=== PATIENT | female | born 1945 | race Two or more races ===

== ENCOUNTER 2023-11-16 19:51 | Inpatient (IN) | payer MEDICARE, OTHER ==
[~2023-11-16] VITALS: Ht 157.5 cm; Wt 50.0 kg
[2023-11-16] MEDS: ALBUTEROL SULF 2.5 MG/0.5ML(0.5%) NEB SOLN HHN ONE (21:06)
[2023-11-16] MEDS: IPRATROPIUM BROM 0.5 MG/2.5ML INH SOL HHN ONE (21:06)
[2023-11-16 21:16] LABS: Basophils # (auto) 0.1 10 ^3/uL (0-0.2); Basophils % (auto) 0.6 % (0.0-2.0); Eosinophils # (auto) 0.3 10 ^3/uL (0-0.8); Eosinophils % (auto) 2.3 % (0.0-7.0); Hematocrit 33.6 % (36.0-46.0); Hemoglobin 10.6 g/dL (12.2-16.2); Lymphocytes # (auto) 0.9 10 ^3/uL (0.4-5.4); Lymphocytes % (auto) 6.9 % (10.0-50.0); Mean Corpuscular Hemoglobin 28.4 pg (28.0-32.0); Mean Corpuscular Hgb Conc. 31.4 g/dL (32.0-36.0); Mean Corpuscular Volume 90.3 fL (80.0-100.0); Monocytes # (auto) 0.7 10 ^3/uL (0-1.3); Monocytes % (auto) 5.1 % (0.0-12.0); Neutrophils # (auto) 11.5 10 ^3/uL (1.6-8.6); Neutrophils % (auto) 85.1 % (37.0-80.0); Nucleated Red Blood Cells % 0.1 %; Red Blood Cells 3.72 10^6/uL (4.0-5.20); Red Cell Distribution Width 14.9 % (11.8-14.3); White Blood Cell 13.5 10^3/uL (4.4-10.8)
[2023-11-16 21:41] LABS: Chloride 104 mmol/L (98-107); Potassium 4.7 mmol/L (3.5-5.1); Sodium 135 mmol/L (136-145)
[2023-11-16 21:42] LABS: Anion Gap 6 (5-15); Calcium 7.5 mg/dL (8.5-10.1); Carbon Dioxide 25 mmol/L (20-30)
[2023-11-16 21:47] LABS: Blood Urea Nitrogen 20 mg/dL (9-23)
[2023-11-16 22:08] LABS: Glucose 426 mg/dL (74-106)
[2023-11-17] VITALS (10 sets, daily range): BP systolic 138–146; BP diastolic 55–75; PULSE 80–96; RESP 12–20; TEMP 97.4–98.3; O2SAT 91–98
[2023-11-17] MEDS ORDERED: NITROGLYCERIN 0.4 MG SL TAB SL PRN (03:15)
[2023-11-17] MEDS ORDERED: DEXTROSE (50%) 50ML SYRG IV PRN (03:15)
[2023-11-17] MEDS ORDERED: ONDANSETRON HCL 4 MG/2 ML VIAL IV PRN (03:15)
[2023-11-17] MEDS ORDERED: ALBUTEROL SULF 2.5 MG/0.5ML(0.5%) NEB SOLN NEB PRN (03:15)
[2023-11-17] MEDS ORDERED: MORPHINE SULFATE INJ 2 MG/ml SYRG IV PRN (03:15)
[2023-11-17] MEDS ORDERED: IPRATROPIUM BROM 0.5 MG/2.5ML INH SOL NEB PRN (03:15)
[2023-11-17] MEDS ORDERED: cefTRIAXone 1GM/50ML D5W 50 ML IV SCH ×2 (04:00→09:00)
[2023-11-17] MEDS: AZITHROMYCIN 500MG/ 250ML 250 ML IV ONE (05:40)
[2023-11-17] MEDS: methylPREDNISolone SOD SUCC 125 MG/2 ML VL IV ONE (05:48)
[2023-11-17] MEDS: InsuLIN REG 1unit/0.01ml Soln (100units/ml) IV ONE (05:53)
[2023-11-17] MEDS: FUROSEMIDE 20 MG/2 ML VIAL IV ONE (05:53)
[2023-11-17] MEDS: ACCU-CHEK COMFORT CURVE STRIP VI SCH (06:00)
[2023-11-17] MEDS: InsuLIN REG 1unit/0.01ml Soln (100units/ml) SC SCH (06:00)
[2023-11-17] MEDS ORDERED: VANCOMYCIN PER PHARMACY 0 MG IV SCH (09:00)
[2023-11-17 09:02] LABS: Basophils # (auto) 0.1 10 ^3/uL (0-0.2); Eosinophils # (auto) 0 10 ^3/uL (0-0.8); Eosinophils % (auto) 0.3 % (0.0-7.0); Hematocrit 32.6 % (36.0-46.0); Hemoglobin 10.6 g/dL (12.2-16.2); Lymphocytes # (auto) 1.3 10 ^3/uL (0.4-5.4); Lymphocytes % (auto) 14.7 % (10.0-50.0); Mean Corpuscular Hemoglobin 28.9 pg (28.0-32.0); Mean Corpuscular Hgb Conc. 32.6 g/dL (32.0-36.0); Mean Corpuscular Volume 88.7 fL (80.0-100.0); Monocytes # (auto) 0.4 10 ^3/uL (0-1.3); Monocytes % (auto) 5.1 % (0.0-12.0); Neutrophils # (auto) 6.8 10 ^3/uL (1.6-8.6); Neutrophils % (auto) 78.9 % (37.0-80.0); Red Blood Cells 3.68 10^6/uL (4.0-5.20); Red Cell Distribution Width 14.7 % (11.8-14.3); White Blood Cell 8.6 10^3/uL (4.4-10.8)
[2023-11-17 09:21] LABS: Alanine Aminotransferase 10 U/L (7-40); Albumin 3.6 g/dL (3.2-4.8); Alkaline Phosphatase 82 U/L (46-116); Anion Gap 9 (5-15); Aspartate Aminotransferase 9 U/L (13-40); BUN/Creatinine Ratio 14.4 (10.0-20.0); Blood Urea Nitrogen 24 mg/dL (9-23); Calcium 7.5 mg/dL (8.5-10.1); Carbon Dioxide 24 mmol/L (20-30); Chloride 103 mmol/L (98-107); Cholesterol 168 mg/dL (< 200); Glucose 370 mg/dL (74-106); HDL Cholesterol 76 mg/dL (40-59); LDL Cholesterol 66 mg/dL (< 100); Potassium 4.4 mmol/L (3.5-5.1); Sodium 136 mmol/L (136-145); Triglycerides 119 mg/dL (< 150)
[2023-11-17 09:22] LABS: Bilirubin, Total 0.2 mg/dL (0.2-1.0); Phosphorus 4.6 mg/dL (2.4-5.1)
[2023-11-17 09:29] LABS: CRP High Sensitivity 9.91 mg/dL (<1.0)
[2023-11-17 09:33] LABS: INR 1.04 (0.9-1.15); Partial Thromboplastin Time 30.6 SEC (24.5-34.5); Prothrombin Time 10.9 sec (9.3-11.8)
[2023-11-17 09:38] LABS: Lactic Acid w/Reflex 2.2 mmol/L (0.4-2.0)
[2023-11-17] MEDS: CEFEPIME 1GM/ 50ML 50 ML IV ONE (09:57)
[2023-11-17] MEDS: CARVEDILOL 12.5 MG TAB PO SCH (10:00)
[2023-11-17] MEDS: VANCOMYCIN 1GM/200ML 200 ML IV ONE ×2 (10:30→16:46)
[2023-11-17] MEDS: GABAPENTIN 300 MG CAP PO SCH (10:33)
[2023-11-17] MEDS: amLODIPine BESYLATE 5 MG TAB PO SCH (10:34)
[2023-11-17] MEDS: ENOXAPARIN SOD 30 MG/0.3 ML SYRINGE SC SCH (10:34)
[2023-11-17 11:00] LABS: Magnesium 1.6 mg/dL (1.6-2.6)
[2023-11-17] MEDS ORDERED: LEVALBUTEROL HCL 1.25 MG/3 ML NEB NEB PRN (12:00)
[2023-11-17] MEDS ORDERED: LEVALBUTEROL HCL 1.25 MG/3 ML NEB NEB SCH (12:00)
[2023-11-17] MEDS ORDERED: ENAL1TAB42 PO (14:50)
[2023-11-17] MEDS ORDERED: AMLO1TAB22 PO (14:50)
[2023-11-17] MEDS ORDERED: CARV-216 PO (14:50)
[2023-11-17] MEDS ORDERED: SULF500T57 PO (14:50)
[2023-11-17] MEDS ORDERED: PRE1T PO (14:50)
[2023-11-17] MEDS ORDERED: GLIP10TA21 PO (14:50)
[2023-11-17] MEDS ORDERED: TRAZ-227 PO (14:50)
[2023-11-17] MEDS ORDERED: METF-370 PO (14:50)
[2023-11-17] MEDS ORDERED: CHOL20007 PO (14:50)
[2023-11-17] MEDS ORDERED: HYDR25TA4 PO (14:50)
[2023-11-17] MEDS ORDERED: ATOR20TA50 PO (14:50)
[2023-11-17] MEDS ORDERED: GABA300T4 PO (14:50)
[2023-11-17] MEDS: ACETAMINOPHEN 325 MG TAB PO PRN (16:45)
[2023-11-17] MEDS ORDERED: SODIUM CHLORIDE 0.9% 1,000 ML IV SCH (19:00)
[2023-11-17] MEDS: ERGOCALCIFEROL 50,000 UNIT(1.25MG) CAP PO SCH (20:12)
[2023-11-17] MEDS: CEFEPIME 1GM/ 50ML 50 ML IV SCH (21:07)
[2023-11-17] MEDS: methylPREDNISolone SOD SUCC 40 MG/ML VL IV SCH (21:07)
[2023-11-17] MEDS: ATORVASTATIN 20 MG TAB PO SCH (21:08)
[2023-11-17] MEDS: SODIUM CHLORIDE 0.9% 250 ML IV ONE (21:09)
[2023-11-17] MEDS ORDERED: AZITHROMYCIN 500MG/ 250ML 250 ML IV SCH (22:00)
[2023-11-18] VITALS (11 sets, daily range): BP systolic 92–145; BP diastolic 56–85; PULSE 70–98; RESP 14–19; TEMP 97.2–98.4; O2SAT 92–99
[2023-11-18 06:32] LABS: Basophils # (auto) 0 10 ^3/uL (0-0.2); Basophils % (auto) 0.5 % (0.0-2.0); Eosinophils # (auto) 0 10 ^3/uL (0-0.8); Eosinophils % (auto) 0.3 % (0.0-7.0); Hematocrit 30.1 % (36.0-46.0); Hemoglobin 9.9 g/dL (12.2-16.2); Lymphocytes # (auto) 0.5 10 ^3/uL (0.4-5.4); Lymphocytes % (auto) 7.1 % (10.0-50.0); Mean Corpuscular Hemoglobin 29.1 pg (28.0-32.0); Mean Corpuscular Hgb Conc. 32.8 g/dL (32.0-36.0); Mean Corpuscular Volume 88.7 fL (80.0-100.0); Monocytes # (auto) 0.1 10 ^3/uL (0-1.3); Monocytes % (auto) 1.3 % (0.0-12.0); Neutrophils % (auto) 90.8 % (37.0-80.0); Red Blood Cells 3.39 10^6/uL (4.0-5.20); Red Cell Distribution Width 14.8 % (11.8-14.3); White Blood Cell 7.7 10^3/uL (4.4-10.8)
[2023-11-18 06:46] LABS: Albumin 3.2 g/dL (3.2-4.8); Alkaline Phosphatase 66 U/L (46-116); Anion Gap 9 (5-15); Aspartate Aminotransferase < 8 U/L (13-40); BUN/Creatinine Ratio 21.9 (10.0-20.0); Calcium 7.1 mg/dL (8.7-10.4); Carbon Dioxide 23 mmol/L (20-30); Chloride 106 mmol/L (98-107); Glucose 253 mg/dL (74-106); Magnesium 1.7 mg/dL (1.6-2.6); Potassium 4.9 mmol/L (3.5-5.1); Sodium 138 mmol/L (136-145)
[2023-11-18 06:47] LABS: Bilirubin, Total 0.2 mg/dL (0.2-1.0); Total Protein 4.9 g/dL (5.7-8.2)
[2023-11-18 06:51] LABS: Alanine Aminotransferase < 9 U/L (7-40); Blood Urea Nitrogen 34 mg/dL (9-23)
[2023-11-18 07:20] LABS: Phosphorus 4.6 mg/dL (2.4-5.1)
[2023-11-18] MEDS: FUROSEMIDE 40 MG TAB PO SCH (08:37)
[2023-11-18 10:13] LABS: Urine Bacteria FEW /hpf (None Seen); Urine Blood Negative /uL (Negative); Urine Clarity Clear (Clear); Urine Color Light-Yellow (Yellow); Urine Protein, UAD 2+ (Negative); Urine Urobilinogen Normal (Negative); Urine WBC 1 /hpf (0 - 5); Urine pH 5.5 (5.0-9.0)
[2023-11-18 10:26] LABS: Amphetamine Screen, Urine Neg (NEGATIVE)
[2023-11-18 10:27] LABS: Barbiturate Scree,Urine Neg (NEGATIVE); Benzodiazephine Screen, Urine Neg (NEGATIVE); Cannabinoid Screen, Urine Neg (NEGATIVE); Cocaine Screen, Urine Neg (NEGATIVE); Opiate Scree,Urine Neg (NEGATIVE); Phencyclidine Screen, Urine Neg (NEGATIVE)
[2023-11-18] MEDS: VANCOMYCIN 500 MG in D5W 5% 100 ML IV ONE (11:00)
[2023-11-18] MEDS: AZITHROMYCIN 250 MG TAB PO ONE (17:19)
[2023-11-18] MEDS: FUROSEMIDE 20 MG/2 ML VIAL IV ONE (17:19)
[2023-11-18] MEDS: sulfaSALAzine 500 MG TAB PO SCH ×2 (18:00→20:30)
[2023-11-18] MEDS: sulfaSALAzine 500 MG TAB PO ONE (22:16)
[2023-11-18] MEDS: CEFEPIME 1GM/ 50ML 50 ML IV SCH (22:17)
[2023-11-18] MEDS: CARVEDILOL 3.125 MG TAB PO SCH (22:17)
[2023-11-19] VITALS (8 sets, daily range): BP systolic 133–149; BP diastolic 61–74; PULSE 66–85; RESP 16–20; TEMP 36.7; O2SAT 95–98
[2023-11-19 06:38] LABS: Basophils # (auto) 0 10 ^3/uL (0-0.2); Basophils % (auto) 0.4 % (0.0-2.0); Eosinophils # (auto) 0 10 ^3/uL (0-0.8); Eosinophils % (auto) 0.1 % (0.0-7.0); Hematocrit 30.8 % (36.0-46.0); Hemoglobin 9.9 g/dL (12.2-16.2); Lymphocytes # (auto) 0.6 10 ^3/uL (0.4-5.4); Lymphocytes % (auto) 9.3 % (10.0-50.0); Mean Corpuscular Hemoglobin 28.9 pg (28.0-32.0); Mean Corpuscular Hgb Conc. 32.3 g/dL (32.0-36.0); Mean Corpuscular Volume 89.3 fL (80.0-100.0); Monocytes # (auto) 0.1 10 ^3/uL (0-1.3); Monocytes % (auto) 1.2 % (0.0-12.0); Neutrophils # (auto) 5.5 10 ^3/uL (1.6-8.6); Red Blood Cells 3.45 10^6/uL (4.0-5.20); Red Cell Distribution Width 14.8 % (11.8-14.3); White Blood Cell 6.2 10^3/uL (4.4-10.8)
[2023-11-19 06:57] LABS: Alanine Aminotransferase 12 U/L (7-40); Albumin 3.4 g/dL (3.2-4.8); Alkaline Phosphatase 75 U/L (46-116); Anion Gap 8 (5-15); Aspartate Aminotransferase 12 U/L (13-40); BUN/Creatinine Ratio 20.1 (10.0-20.0); Bilirubin, Total 0.2 mg/dL (0.2-1.0); Blood Urea Nitrogen 33 mg/dL (9-23); Calcium 7.3 mg/dL (8.5-10.1); Carbon Dioxide 24 mmol/L (20-30); Chloride 106 mmol/L (98-107); Glucose 308 mg/dL (74-106); Phosphorus 4.7 mg/dL (2.4-5.1); Sodium 138 mmol/L (136-145); Total Protein 5.6 g/dL (5.7-8.2)
[2023-11-19 07:12] LABS: Magnesium 1.8 mg/dL (1.6-2.6)
[2023-11-19] MEDS ORDERED: LEVO750T40 PO (14:50)
[2023-11-19] MEDS: FUROSEMIDE 20 MG/2 ML VIAL IV ONE (15:00)
[2023-11-19] MEDS: AZITHROMYCIN 250 MG TAB PO SCH (16:12)
== END 2023-11-19 17:00 | disposition home or self-care (01) | DRG 871 ==
LOC: EDBD 19:51 → ER 19:51 → TELE 11-17 03:14 → TELE-EAST 11-17 12:54
PROVIDERS: ADMIT Internal Medicine; ATTEND Internal Medicine
DX: A41.50 Gram-negative sepsis, unspecified (principal); I50.43 Acute on chronic combined systolic (congestive) and diastolic (congestive) heart failure; J15.69 Pneumonia due to other Gram-negative bacteria; N17.0 Acute kidney failure with tubular necrosis; J96.21 Acute and chronic respiratory failure with hypoxia; J15.9 Unspecified bacterial pneumonia; J44.0 Chronic obstructive pulmonary disease with (acute) lower respiratory infection; J44.1 Chronic obstructive pulmonary disease with (acute) exacerbation; I13.0 Hypertensive heart and chronic kidney disease with heart failure and stage 1 through stage 4 chronic kidney disease, or unspecified chronic kidney disease; M06.9 Rheumatoid arthritis, unspecified; E11.22 Type 2 diabetes mellitus with diabetic chronic kidney disease; N18.9 Chronic kidney disease, unspecified; Z90.13 Acquired absence of bilateral breasts and nipples; Z90.710 Acquired absence of both cervix and uterus; Z87.891 Personal history of nicotine dependence
CPT/HCPCS: 36415; 71045; 78582; 80048; 80053; 80061; 80202; 80307; 81001; 82306; 82607; 82962; 83036; 83605; 83735; 83880; 84100; 84443; 84484; 85025; 85379; 85610; 85730; 86141; 87040; 87086; 93005; 93306; 94640; G0378; J1815; J7060

== ENCOUNTER 2024-12-12 12:30 | Inpatient (IN) | payer MEDICARE, OTHER ==
[~2024-12-12] VITALS: Ht 152.4 cm; Wt 44.9 kg
[2024-12-12] VITALS (8 sets, daily range): BP systolic 105–139; BP diastolic 53–75; PULSE 82–93; RESP 16–20; TEMP 97.6–97.9; O2SAT 96–100
[~2024-12-12 12:30] MED LIST: AMLO1TAB22 PO; ATOR20TA50 PO; CARV-216 PO; CHOL20007 PO; ENAL1TAB42 PO; GABA300T4 PO; GLIP10TA21 PO; HYDR25TA4 PO; LEVO750T40 PO; METF-370 PO; PRE1T PO; SULF500T57 PO; TRAZ-227 PO
--- NOTE | 2024-12-12 13:01 | ED.PDOC ---
SOB-HPI HPI Comments 79 year-old Female presents to the ED with a c/c of Fever and Generalized Weakness that has been onset for the past week with no alleviating factors at this time. Pt states that she had a fever of 101, accompanied with an unproductive cough last night, and reports of taking Tylenol for her symptoms. Pt Denies any sick contact, but does report being on 2L O2 for her COPD. PMHx: COPD, DM Medications: Metformin Vitals: TEMP: 97.2 RR: 18 HR 102 BP: 129/55 HPI: Poor Historian. REVIEW OF SYSTEMS: CONSTITUTIONAL: Denies acute: diaphoresis, HEAD: Denies acute: headache, photophobia Eyes: Denies acute: Double vision, vision loss, eye pain, eye discharge. EARS: Denies acute: tinnitus, hearing loss, ear discharge, ear pain, THROAT: Denies acute: sore throat, swelling, difficulty swallowing , pain with swallowing, change in voice. NECK: Denies acute: neck pain, neck swelling, stiff neck. HEART: Denies acute : chest pain, palpitations, LUNGS: Denies acute: wheezing, hemoptysis ABDOMEN: Denies acute: abdominal pain, Nausea, Vomiting, diarrhea, melena , hematemesis, hematochezia SKIN: Denies acute: rash, redness, lesions, itchiness. EXTREMITIES: Denies acute: calf pain, numbness, tingling, weakness, denies pain in extremity. Denies acute: Low back pain. Neuro: Denies acute: focal neurological deficit, motor or sensory focal neurological deficit, tremors, seizure like activity, confusion, dizziness, change in mental status, loss of bowel or bladder function, cauda equina like symptoms. : Denies acute: dysuria, hematuria, flank pain, increase in urinary frequency. PSYCH: Denies acute: hallucination, suicidal ideation, homicidal ideation. FEMALE: Denies acute: abnormal vaginal bleeding, foul odor, unusual discharge. PHYSICAL EXAM: General: ---[id number]-----acute distress, awake and alert. Head: normocephalic, atraumatic. Neck: supple, trachea is midline, no swelling. Throat: Normal phonation. Eyes:, no erythema, no purulent discharge, no proptosis, no icterus. Heart: regular rate, regular rhythm, no significant murmur appreciated. Lungs: Mild respiratory distress, Mild wheezing, right greater than left rhonchi, no crackles. No stridors Abdomen: non tender to palpation, non distended, soft, no guarding, no rebound, + bowel sounds. Neuro: Awake, Alert, oriented to name, self, situation, follows commands GCS=15. Speech is normal. Skin: no petechia, no purpura, no cyanosis, non-pale, not jaundice. Lower extremities: --no - Pitting edema no deformity, no focal swelling, no calf TTP. Makes eye contact. moves all four extremities. Face: no apparent facial droop. ED COURSE: Chief Complaint: Flu like Time Seen by MD: 12:57 Reviewed notes: Allergies Information Source: Patient Past Medical History PAST MEDICAL HISTORY: Cancer, COPD, DM, HTN Surgical History: Appendectomy, Hysterectomy [employer] History: No Pertinent [employer] History Family History Family History: Reviewed,noncontributory to illness Social History Smoker: Quit Greater Than 1 Year Alcohol: Denies ETOH Use Drugs: Denies Drug Use Lives In: Home Was a procedure done? Was a procedure done?: No Differential Dx Differential Diagnosis: Bronchitis, Sinusitis, Allergic Rhinitis, Other (DDx include ACS, unstable angina, anxiety, PE, pneumothroax, neoplasm, cardiac ischemia, COPD, asthma, CHF, pleural effusion, tobacco abuse, pneumonia, hypoxia, hypercapnia, anemia., infection/sepsis., pulmonary edema. Asthma, Cardiac tamponade, infection.) X-Ray, Labs, Meds, VS Vital Signs Date Time Temp Pulse Resp B/P (MAP) Pulse Ox O2 Delivery O2 Flow Rate FiO2 12/12/24 14:59 89 20 98 Room Air* 0 21 12/12/24 14:57 89 18 100 Nasal Cannula 2.0 12/12/24 14:57 97.6 89 18 149/65 (93) 100 97.6 12/12/24 14:54 18 98 Nasal Cannula* 2 28 12/12/24 12:48 97.2 102 18 129/59 (82) 98 97.2 12/12/24 12:45 95 Lab Test 12/12/24 14:17 12/12/24 13:17 12/12/24 12:44 12/12/24 12:43 Range/Units Troponin I High Sensitivity 28 28 </=34 ng/L White Blood Count 6.9 4.4-10.8 10^3/uL Red Blood Count 4.75 4.0-5.20 10^6/uL Hemoglobin 13.4 12.2-16.2 g/dL Hematocrit 40.3 36.0-46.0 % Mean Corpuscular Volume 84.8 80.0-100.0 fL Mean Corpuscular Hemoglobin 28.1 28.0-32.0 pg Mean Corpuscular Hemoglobin Concent 33.2 32.0-36.0 g/dL Red Cell Distribution Width 16.3 H 11.8-14.3 % Platelet Count 154 140-450 10^3/uL Mean Platelet Volume 7.3 6.9-10.8 fL Neutrophils (%) (Auto) 85.7 H 37.0-80.0 % Lymphocytes (%) (Auto) 8.8 L 10.0-50.0 % Monocytes (%) (Auto) 4.7 0.0-12.0 % Eosinophils (%) (Auto) 0.5 0.0-7.0 % Basophils (%) (Auto) 0.3 0.0-2.0 % Neutrophils # (Auto) 5.9 1.6-8.6 10 ^3/uL Lymphocytes # (Auto) 0.6 0.4-5.4 10 ^3/uL Monocytes # (Auto) 0.3 0-1.3 10 ^3/uL Eosinophils # (Auto) 0 0-0.8 10 ^3/uL Basophils # (Auto) 0 0-0.2 10 ^3/uL Nucleated Red Blood Cells 0.1 % Sodium Level 135 L 136-145 mmol/L Potassium Level 3.9 3.5-5.1 mmol/L Chloride Level 98 98-107 mmol/L Carbon Dioxide Level 23 20-31 mmol/L Anion Gap 14 5-15 Blood Urea Nitrogen 33 H 9-23 mg/dL Creatinine 1.88 H 0.550-1.02 mg/dL Glomerular Filtration Rate Calc 27 >90 mL/min BUN/Creatinine Ratio 17.6 10.0-20.0 Serum Glucose 273 H 74-106 mg/dL Hemoglobin A1c 9.3 H <5.7 % A1C Lactic Acid Level 1.5 0.4-2.0 mmol/L Calcium Level 9.2 8.7-10.4 mg/dL Magnesium Level 1.5 L 1.6-2.6 mg/dL Total Bilirubin 0.3 0.2-1.0 mg/dL Aspartate Amino Transferase (AST) 19 13-40 U/L Alanine Aminotransferase (ALT) 9 7-40 U/L Alkaline Phosphatase 77 46-116 U/L B-Type Natriuretic Peptide 419.61 0-100 pg/mL Total Protein 5.8 5.7-8.2 g/dL Albumin 3.6 3.2-4.8 g/dL POC Glucose 238 H 70-106 mg/dl Urine Color Yellow Yellow Urine Clarity Clear Clear Urine pH 6.0 5.0-9.0 Urine Specific [place] 1.021 1.001-1.035 Urine Protein 3+ H Negative Urine Ketones 1+ H Negative Urine Blood 1+ H Negative /uL Urine Nitrite Negative Negative Urine Bilirubin Negative Negative Urine Urobilinogen Normal Negative mg/dL Urine Leukocyte Esterase Negative Negative /uL Urine RBC 5 0 - 4 /hpf Urine Microscopic WBC 7 H 0-5 /HPF Urine Squamous Epithelial Cells None seen <5 /hpf Urine Transitional Epithelial Cells Few <2 /hpf Urine Bacteria None seen None Seen /hpf Urine Glucose 2+ H Normal mg/dL Test 12/12/24 12:42 Range/Units Influenza Type A Antigen Negative Negative Influenza Type B Antigen Negative Negative SARS-CoV-2 Antigen (Rapid) Negative NEGATIVE Microbiology Date/Time Source Procedure Growth Status 12/12/24 13:17 Blood Blood Culture - Preliminary NO GROWTH AFTER 24 HOURS OF INCUBATION. Resulted 12/12/24 13:02 Blood Blood Culture - Preliminary NO GROWTH AFTER 24 HOURS OF INCUBATION. Resulted PATIENT: BARBARA PULIDOCT: [id number]: [id number] : 1945 LOC: ER ROOM / BED: / AGE / SEX: 79 / F ADM STATUS: REG ER SERVICE 1256 ORDERING PHYSICIAN: DAREN MEJIA DO PROCEDURE(s): CXRP - CHEST PORTABLE REASON: COUGH FEVER WEAK ORDER NUMBER(s): [id number], ACCESSION NUMBER(s): [id number] EXAM: XY CHEST PORTABLE HISTORY: COUGH FEVER WEAK COMPARISON: XY CHEST PORTABLE on DOS: 11/16/23 TECHNIQUE: Portable upright AP view of the chest was performed. FINDINGS: There are diffuse interstitial opacities, greater on the right. No pneumothorax or consolidative infiltrates. The heart is not enlarged. The aortic arch is calcific. There is thoracic levoscoliosis. There are surgical clips in the right axilla. IMPRESSION: Bilateral interstitial opacities are greater on the left and may be due to asymmetric pulmonary edema, reactive airways disease, or interstitial pneumonia. ATED BY: KP JAQUEZ MD DICTATED DATE/TIME: 12/12/24 1316 SIGNED BY: KP JAQUEZ MD SIGNED DATE/TIME: 12/12/241315 Time of 1ST Reevaluation: 01:20 Reevaluation 1ST: Unchanged Patient Education/Counseling: Diagnosis, Treatment Family Education/Counseling: No Family Present Comments Patient presented with the above HPI.----generalized weakness and respiratory symptoms--workup was initiated. patient was found with the above mentioned diagnosis. the following medications were ordered: please refer to order lists of meds and tests obtained by myself Dr. Mejia. Patient ED course and VS have been stabilized. Patient has been reassessed in the ED and remained in a stable condition. Pertinent incidental findings were discussed with the patient and/or family. Patient/family voices understanding and is agreeable with plan. Patient has been observed in the ED adequate length of time to insure improvement/stability. Escalation of care considered: Consideration of escalation to observation or admission Patient was ADMITTED to the medicine team for further evaluation and treatment of their presentation. All the reports of any imaging studies that were ordered by myself were reviewed by myself. Departure 1 Departure Time of Disposition: 14:15 Impression: Primary Impression: Fever Additional Impressions: Pneumonia COPD exacerbation Disposition: ADMITTED INPATIENT Admit to: Tele Condition: Guarded Discharged With: Self Critical Care Note Critical Care Time?: No Heart Score Heart Score: Heart Score Response (Comments) Value History Slightly Suspicious 0 EKG Normal 0 Age >65 2 Risk Factors 1 or 2 risk factors 1 Troponin Normal limit 0 Total 3 I personally scribed for DAREN MEJIA DO ([email or web address]) on 12/12/24 at 13:01. Electronically submitted by Kp Hansen ([email or web address]). I personally scribed for DAREN MEJIA DO ([email or web address]) on 12/12/24 at 20:53. Electronically submitted by Dale Macias ([email or web address]). DAREN MEJIA DO December 12, 2024 13:01
--- NOTE | 2024-12-12 13:19 | DVH ---
EXAM: XY CHEST PORTABLE HISTORY: COUGH FEVER WEAK COMPARISON: XY CHEST PORTABLE on DOS: 11/16/23 TECHNIQUE: Portable upright AP view of the chest was performed. FINDINGS: There are diffuse interstitial opacities, greater on the right. No pneumothorax or consolidative infi ltrates. The heart is not enlarged. The aortic arch is calcific. There is thoracic levoscoliosis. Th ere are surgical clips in the right axilla. IMPRESSION: Bilateral interstitial opacities are greater on the left and may be due to asymmetric pulmonary edema , reactive airways disease, or interstitial pneumonia.
[2024-12-12 13:39] LABS: COVID19 ANTIGEN SOFIA FIA NEGATIVE (NEGATIVE); Rapid Influenza A Negative (Negative); Rapid Influenza B Negative (Negative)
[2024-12-12 13:40] LABS: Basophils # (auto) 0 10 ^3/uL (0-0.2); Basophils % (auto) 0.3 % (0.0-2.0); Eosinophils # (auto) 0 10 ^3/uL (0-0.8); Eosinophils % (auto) 0.5 % (0.0-7.0); Hematocrit 40.3 % (36.0-46.0); Hemoglobin 13.4 g/dL (12.2-16.2); Lymphocytes # (auto) 0.6 10 ^3/uL (0.4-5.4); Lymphocytes % (auto) 8.8 % (10.0-50.0); Mean Corpuscular Hemoglobin 28.1 pg (28.0-32.0); Mean Corpuscular Hgb Conc. 33.2 g/dL (32.0-36.0); Mean Corpuscular Volume 84.8 fL (80.0-100.0); Monocytes # (auto) 0.3 10 ^3/uL (0-1.3); Monocytes % (auto) 4.7 % (0.0-12.0); Neutrophils # (auto) 5.9 10 ^3/uL (1.6-8.6); Neutrophils % (auto) 85.7 % (37.0-80.0); Nucleated Red Blood Cells % 0.1 %; Platelet Count (auto) 154 10^3/uL (140-450); Red Blood Cells 4.75 10^6/uL (4.0-5.20); Red Cell Distribution Width 16.3 % (11.8-14.3); White Blood Cell 6.9 10^3/uL (4.4-10.8)
[2024-12-12 13:51] LABS: Urine Bacteria None Seen /hpf (None Seen)
[2024-12-12 13:56] LABS: Albumin 3.6 g/dL (3.2-4.8); Alkaline Phosphatase 77 U/L (46-116); Anion Gap 14 (5-15); Aspartate Aminotransferase 19 U/L (13-40); BUN/Creatinine Ratio 17.6 (10.0-20.0); Calcium 9.2 mg/dL (8.7-10.4); Carbon Dioxide 23 mmol/L (20-31); Potassium 3.9 mmol/L (3.5-5.1); Total Protein 5.8 g/dL (5.7-8.2)
[2024-12-12 13:57] LABS: Alanine Aminotransferase 9 U/L (7-40); Bilirubin, Total 0.3 mg/dL (0.2-1.0); Blood Urea Nitrogen 33 mg/dL (9-23); Chloride 98 mmol/L (98-107); Glucose 273 mg/dL (74-106); Magnesium 1.5 mg/dL (1.6-2.6); Sodium 135 mmol/L (136-145)
[2024-12-12 13:57] LABS: Urine Blood 1+ /uL (Negative); Urine Clarity Clear (Clear); Urine Color Yellow (Yellow); Urine Protein, UAD 3+ (Negative); Urine Specific Gravity 1.021 (1.001-1.035); Urine Squamous Epithelial Cell None Seen /hpf (<5); Urine Urobilinogen Normal (Negative); Urine WBC 7 /HPF (0-5)
[2024-12-12] MEDS: levoFLOXacin 500 MG TAB PO ONE (14:45)
[2024-12-12] MEDS: MAGNESIUM SULFATE 1GM/100ML 100 ML IV ONE (14:51)
[2024-12-12] MEDS: methylPREDNISolone SOD SUCC 40 MG/ML VL IV ONE (14:52)
[2024-12-12] MEDS: ALBUTEROL SULF 2.5 MG/0.5ML(0.5%) NEB SOLN NEB ONE (14:53)
[2024-12-12] MEDS: IPRATROPIUM BROM 0.5 MG/2.5ML INH SOL NEB ONE (14:53)
[2024-12-12] MEDS ORDERED: ONDANSETRON HCL 4 MG/2 ML VIAL IV PRN (16:15)
[2024-12-12] MEDS ORDERED: DEXTROSE (50%) 50ML SYRG IV PRN (16:15)
--- NOTE | 2024-12-12 16:47 | DVHHP2 ---
History of Present Illness Reason for Visit: Flu-like symptoms with general weakness History of Present Illness Jodie Lehman is a 79-year-old female with past medical history of hypertension, diabetes type 2, COPD on oxygen as needed, CHF, breast cancer, hysterectomy, bilateral mastectomy in 2018 at [facility], and appendectomy who presents to the ED with flu-like symptoms, cough, with nonproductive cough fever, and generalized weakness since yesterday. Patient's daughter Gabby at chair side states that her mom has also lost the appetite to eat since yesterday. Patient's daughter also endorses that she uses 2 L nasal cannula of oxygen as needed at home. She also states that her mom uses a front wheel walker while ambulating. Patient denies any recent sick contacts, recent travels, recent ingestion of spoiled food, recent trauma or injury, lightheadedness, dizziness, abdominal pain, nausea, vomiting, chest pain or shortness of breath. Patient's daughter states that she gave her ensures and caused diarrhea yesterday. Cardiovascular: CHF, HTN Pulmonary: COPD Endocrine: Diabetes Past Medical History Breast cancer Past Surgical History: Appendectomy, Hysterectomy, Mastectomy Family History: Cancer, DM, Other (Mom with breast cancer and diabetes) Smoke: Quit ALCOHOL: none Drugs: None Lives: with Family Domestic Violence: Neg Review of Systems Constitutional: Yes: Fever, Weakness Respiratory: Cough Allergies: Coded Allergies: NO KNOWN ALLERGIES (Unverified , 11/16/23) Medications Current Medications Medications Dose Ordered Sig/Addison Route Start Time Stop Time Status Last Admin Dose Admin Ondansetron HCl 4 mg Q4HP PRN IV 12/12/24 16:15 UNV Enoxaparin Sodium 40 mg DAILY SC 12/13/24 10:00 UNV Acetaminophen 650 mg Q6HP PRN PO 12/12/24 16:15 UNV Diagnostic Test (Pha) 1 strip ACHS 12/12/24 17:00 UNV Insulin Human Regular ACHS SC 12/12/24 17:00 UNV Dextrose 50 ml UD PRN IV 12/12/24 16:15 UNV Levofloxacin/ Dextrose 100 ml @ 100 mls/hr DAILY IV 12/13/24 10:00 UNV Albuterol 2.5 mg Q4HWA NEB 12/12/24 18:00 UNV Ipratropium [place] 0.5 mg Q4HWA NEB 12/12/24 18:00 UNV Methylprednisolone Sodium Succinate 80 mg BID IV 12/12/24 22:00 UNV Exam Vital Signs Vital Signs Date Time Temp Pulse Resp B/P (MAP) Pulse Ox O2 Delivery O2 Flow Rate FiO2 12/12/24 14:59 89 20 98 Room Air* 0 21 12/12/24 14:57 97.6 149/65 (93) 97.6 General Appearance: Alert, Oriented X3, Cooperative, No acute distress HEENT: Atraumatic, PERRLA, EOMI, Mucous membr. moist/pink Respiratory: Normal air movement Cardiovascular: Normal S1, Normal S2, No murmurs Abdominal: Normal bowel sounds, Soft Extremities: No clubbing, No cyanosis, Normal pulses Neuro: Normal speech, Normal tone, Sensation intact Psych/Mental Status: Mental status NL, Mood NL Labs/Xrays Labs Test 12/12/24 14:17 12/12/24 13:17 12/12/24 12:44 12/12/24 12:43 Range/Units Troponin I High Sensitivity 28 </=34 ng/L White Blood Count 6.9 4.4-10.8 10^3/uL Red Blood Count 4.75 4.0-5.20 10^6/uL Hemoglobin 13.4 12.2-16.2 g/dL Hematocrit 40.3 36.0-46.0 % Mean Corpuscular Volume 84.8 80.0-100.0 fL Mean Corpuscular Hemoglobin 28.1 28.0-32.0 pg Mean Corpuscular Hemoglobin Concent 33.2 32.0-36.0 g/dL Red Cell Distribution Width 16.3 H 11.8-14.3 % Platelet Count 154 140-450 10^3/uL Mean Platelet Volume 7.3 6.9-10.8 fL Neutrophils (%) (Auto) 85.7 H 37.0-80.0 % Lymphocytes (%) (Auto) 8.8 L 10.0-50.0 % Monocytes (%) (Auto) 4.7 0.0-12.0 % Eosinophils (%) (Auto) 0.5 0.0-7.0 % Basophils (%) (Auto) 0.3 0.0-2.0 % Neutrophils # (Auto) 5.9 1.6-8.6 10 ^3/uL Lymphocytes # (Auto) 0.6 0.4-5.4 10 ^3/uL Monocytes # (Auto) 0.3 0-1.3 10 ^3/uL Eosinophils # (Auto) 0 0-0.8 10 ^3/uL Basophils # (Auto) 0 0-0.2 10 ^3/uL Nucleated Red Blood Cells 0.1 % Sodium Level 135 L 136-145 mmol/L Potassium Level 3.9 3.5-5.1 mmol/L Chloride Level 98 98-107 mmol/L Carbon Dioxide Level 23 20-31 mmol/L Anion Gap 14 5-15 Blood Urea Nitrogen 33 H 9-23 mg/dL Creatinine 1.88 H 0.550-1.02 mg/dL Glomerular Filtration Rate Calc 27 >90 mL/min BUN/Creatinine Ratio 17.6 10.0-20.0 Serum Glucose 273 H 74-106 mg/dL Lactic Acid Level 1.5 0.4-2.0 mmol/L Calcium Level 9.2 8.7-10.4 mg/dL Magnesium Level 1.5 L 1.6-2.6 mg/dL Total Bilirubin 0.3 0.2-1.0 mg/dL Aspartate Amino Transferase (AST) 19 13-40 U/L Alanine Aminotransferase (ALT) 9 7-40 U/L Alkaline Phosphatase 77 46-116 U/L B-Type Natriuretic Peptide 419.61 0-100 pg/mL Total Protein 5.8 5.7-8.2 g/dL Albumin 3.6 3.2-4.8 g/dL POC Glucose 238 H 70-106 mg/dl Urine Color Yellow Yellow Urine Clarity Clear Clear Urine pH 6.0 5.0-9.0 Urine Specific [place] 1.021 1.001-1.035 Urine Protein 3+ H Negative Urine Ketones 1+ H Negative Urine Blood 1+ H Negative /uL Urine Nitrite Negative Negative Urine Bilirubin Negative Negative Urine Urobilinogen Normal Negative mg/dL Urine Leukocyte Esterase Negative Negative /uL Urine RBC 5 0 - 4 /hpf Urine Microscopic WBC 7 H 0-5 /HPF Urine Squamous Epithelial Cells None seen <5 /hpf Urine Transitional Epithelial Cells Few <2 /hpf Urine Bacteria None seen None Seen /hpf Urine Glucose 2+ H Normal mg/dL Test 12/12/24 12:42 Range/Units Influenza Type A Antigen Negative Negative Influenza Type B Antigen Negative Negative SARS-CoV-2 Antigen (Rapid) Negative NEGATIVE EXAM: XY CHEST PORTABLE HISTORY: COUGH FEVER WEAK COMPARISON: XY CHEST PORTABLE on DOS: 11/16/23 TECHNIQUE: Portable upright AP view of the chest was performed. FINDINGS: There are diffuse interstitial opacities, greater on the right. No pneumothorax or consolidative infiltrates. The heart is not enlarged. The aortic arch is lisandro cific. There is thoracic levoscoliosis. There are surgical clips in the right axilla. IMPRESSION: Bilateral interstitial opacities are greater on the left and may be due to asymmetric pulmonary edema, reactive airways disease, or interstitial pneumonia. Assessment/Plan Assessment/Plan Assessment Flu-like symptoms with generalized weakness likely due to pneumonia Acute hypoxic respiratory failure Pyrexia JAME Diabetes type 2 Ex-smoker History of hypertension History of COPD on oxygen History of CHF History of breast cancer status post bilateral mastectomy in 2018 at [facility] History of hysterectomy History of appendectomy Plan Admit to med surge Supportive oxygen IV antibiotics-Levaquin IV steroids Duo nebs Mag level Troponin negative x2 Hemoglobin A1c ISS and Accu-Cheks Strict I&Os Daily weights Blood cultures Chest x-ray noted Magnesium replaced Lactic level BNP UA EKG Flu negative COVID negative Diet Home medications reconciled DVT prophylaxis-Lovenox PUD prophylaxis-PPIs Discussed plan of care with patient, patient's daughter, and nurse Plan discussed with: Patient, Daughter My Orders Orders - BRAYDEN DENG PICTURE ENLARGER Procedure Category Date Status Time Admit ADMIT 12/12/24 Transmitted 16:07 Allergies NAV 12/12/24 In Process 16:07 Code Status CODE 12/12/24 Transmitted 16:07 Ondansetron Hcl PHA 12/12/24 Logged (Zofran) 16:15 Enoxaparin Sodium PHA 12/13/24 Logged (Lovenox) 10:00 Complete Blood Count LAB 12/13/24 Verified 04:00 Comprehensive LAB 12/13/24 Verified Metabolic Panel 04:00 Cardiac DIET 12/12/24 Transmitted Diet-2gna,Lofat,Lochol Dinner Acetaminophen Tablet PHA 12/12/24 Logged (Tylenol Tablet) 16:15 Glucose Blood PHA 12/12/24 Logged (Accu-Chek Comfort 17:00 Insulin R (Human) PHA 12/12/24 Logged (Insulin R) 17:00 Dextrose 50% Syringe PHA 12/12/24 Logged 16:15 Hemoglobin A1c LAB 12/12/24 In Process 16:07 Levofloxacin 500mg PHA 12/13/24 Logged (Levaquin 500mg/ 100m 10:00 Albuterol Medneb PHA 12/12/24 Logged (Ventolin Medneb) 18:00 Ipratropium Medneb PHA 12/12/24 Logged (Atrovent Medneb) 18:00 Methylprednisolone PHA 12/12/24 Logged Sod Succ (Solu Medrol 22:00 Amlodipine Tablet PHA 12/13/24 Transmitted (Norvasc Tablet) 10:00 Atorvastatin (Lipitor) PHA 12/13/24 Transmitted 10:00 Carvedilol Tablet PHA 12/13/24 Transmitted (Coreg Tablet) 10:00 Hydrochlorothiazide PHA 12/13/24 Transmitted Tablet (Hydrochlorot 10:00 Sulfasalazine PHA 12/12/24 Transmitted (Azulfidine) 22:00 (Nf) Cholecalciferol PHA 12/13/24 Transmitted (Vitamin D3) 10:00 (Nf) Gabapentin PHA 12/12/24 Transmitted (Once-Daily) 22:00 Date of Service: December 12, 2024 Billing Provider: BRAYDEN DENG Common Visit Codes: [id number] INP/OBS CARE (HIGH) BRAYDEN DENG December 12, 2024 16:47
[2024-12-12] MEDS: ALBUTEROL SULF 2.5 MG/0.5ML(0.5%) NEB SOLN NEB SCH (19:38)
[2024-12-12] MEDS: IPRATROPIUM BROM 0.5 MG/2.5ML INH SOL NEB SCH (19:39)
[2024-12-12] MEDS: ACCU-CHEK COMFORT CURVE STRIP VI SCH (21:49)
[2024-12-12] MEDS: InsuLIN REG 1unit/0.01ml Soln (100units/ml) SC SCH (21:58)
[2024-12-12] MEDS: methylPREDNISolone SOD SUCC 40 MG/ML VL IV SCH (21:58)
[2024-12-12] MEDS: sulfaSALAzine 500 MG TAB PO SCH (22:14)
[2024-12-13] VITALS (17 sets, daily range): BP systolic 104–145; BP diastolic 43–59; PULSE 70–87; RESP 14–18; TEMP 97.7–98.4; O2SAT 95–100
[2024-12-13 05:53] LABS: Basophils # (auto) 0 10 ^3/uL (0-0.2); Basophils % (auto) 0.1 % (0.0-2.0); Eosinophils # (auto) 0 10 ^3/uL (0-0.8); Hematocrit 31.4 % (36.0-46.0); Hemoglobin 10.7 g/dL (12.2-16.2); Lymphocytes # (auto) 0.7 10 ^3/uL (0.4-5.4); Lymphocytes % (auto) 10.2 % (10.0-50.0); Mean Corpuscular Hemoglobin 28.7 pg (28.0-32.0); Mean Corpuscular Hgb Conc. 34.1 g/dL (32.0-36.0); Mean Corpuscular Volume 84.2 fL (80.0-100.0); Monocytes # (auto) 0.2 10 ^3/uL (0-1.3); Monocytes % (auto) 2.5 % (0.0-12.0); Neutrophils # (auto) 5.6 10 ^3/uL (1.6-8.6); Neutrophils % (auto) 87.2 % (37.0-80.0); Nucleated Red Blood Cells % 0.1 %; Platelet Count (auto) 167 10^3/uL (140-450); Red Blood Cells 3.73 10^6/uL (4.0-5.20); Red Cell Distribution Width 15.7 % (11.8-14.3); White Blood Cell 6.4 10^3/uL (4.4-10.8)
[2024-12-13 06:20] LABS: Albumin 3.4 g/dL (3.2-4.8); Alkaline Phosphatase 57 U/L (46-116); Anion Gap 13 (5-15); BUN/Creatinine Ratio 19.2 (10.0-20.0); Carbon Dioxide 22 mmol/L (20-31)
[2024-12-13 06:32] LABS: Chloride 96 mmol/L (98-107); Glucose 197 mg/dL (74-106); Sodium 131 mmol/L (136-145)
[2024-12-13 06:33] LABS: Alanine Aminotransferase < 9 U/L (7-40); Aspartate Aminotransferase 12 U/L (13-40); Bilirubin, Total 0.3 mg/dL (0.2-1.0); Blood Urea Nitrogen 43 mg/dL (9-23); Calcium 8.3 mg/dL (8.7-10.4); Total Protein 5.6 g/dL (5.7-8.2)
--- NOTE | 2024-12-13 06:53 | ECG ---
[facility] Test Date: 2024-12-12 Test Time: 12:45:00 Pat Name: HERI PULIDO Department: ED Room: 0216 B Gender: F Barmaid: ABBY : 1945 Requested By: DAREN MEJIA Order Number: [id number] Reading MD: Ean Lucia Measurements Intervals [place] Rate: 95 P: 268 MA: 69 QRS: 31 QRSD: 148 T: 0 QT: 461 QTc: 580 Interpretive Statements Ectopic atrial rhythm Atrial premature complexes Short MA interval Nonspecific intraventricular conduction delay Probable anteroseptal infarct, recent Baseline wander in lead(s) I,II,III,aVR,aVL,aVF,V1,V4,V5,V6 Electronically Signed On 12-17-2024 11:40:42 PDT by Ean Lucia Please click the below link to view image of tracing.
[2024-12-13] MEDS: levoFLOXacin 500MG 100 ML IV SCH (09:18)
[2024-12-13] MEDS: CHOLECALCIFEROL (VITD3) 1,000UNIT=25mCg TAB PO SCH (09:18)
[2024-12-13] MEDS: CARVEDILOL 12.5 MG TAB PO SCH (09:19)
[2024-12-13] MEDS: amLODIPine BESYLATE 5 MG TAB PO SCH (09:19)
[2024-12-13] MEDS: GABAPENTIN 300 MG CAP PO SCH (09:19)
[2024-12-13] MEDS: FAMOTIDINE (10MG/ML) 2ML VL IV SCH (09:20)
[2024-12-13] MEDS: hydroCHLOROthiazide 25 MG TAB PO SCH (09:20)
[2024-12-13] MEDS: ENOXAPARIN SOD 30 MG/0.3 ML SYRINGE SC SCH (09:20)
--- NOTE | 2024-12-13 11:24 | DVHPN2 ---
Subjective 79-year-old female came with cough and shortness of breaths for about a week and was given cough medication [id number] She did not get better and therefore the daughter brought her to the emergency room Changes from previous H/P or p: Changes Respiratory: Cough Objective Vitals Vital Signs Date Time Temp Pulse Resp B/P (MAP) Pulse Ox O2 Delivery O2 Flow Rate FiO2 12/13/24 10:08 72 18 99 12/13/24 10:08 Nasal Cannula 2.0 12/13/24 10:08 28 12/13/24 09:30 98.1 133/59 (83) 98.1 Intake/Output Intake and Output 12/13/24 07:00 Intake Total 340 ml Balance 340 ml Intake Oral 240 ml IV Total 100 ml General Appearance: Alert, Oriented X3, Cooperative Lungs: Other (Bilateral crackles at the bases) Cardiovascular: Regular rate, Normal S1, Normal S2 Abdomen: Normal bowel sounds, Soft, No tenderness Extremities: No edema Medications Current Medications Medications Dose Ordered Sig/Addison Route Start Time Stop Time Status Last Admin Dose Admin Ondansetron HCl 4 mg Q4HP PRN IV 12/12/24 16:15 Enoxaparin Sodium 30 mg DAILY SC 12/13/24 10:00 12/13/24 09:20 30 MG Acetaminophen 650 mg Q6HP PRN PO 12/12/24 16:15 Diagnostic Test (Pha) 1 strip ACHS 12/12/24 17:00 12/13/24 11:06 1 STRIP Insulin Human Regular ACHS SC 12/12/24 17:00 12/13/24 11:06 6 UNITS Dextrose 50 ml UD PRN IV 12/12/24 16:15 Albuterol 2.5 mg Q4HWA NEB 12/12/24 18:00 12/13/24 10:08 2.5 MG Ipratropium [place] 0.5 mg Q4HWA NEB 12/12/24 18:00 12/13/24 10:08 0.5 MG Methylprednisolone Sodium Succinate 80 mg BID IV 12/12/24 22:00 12/13/24 09:18 80 MG Amlodipine Besylate 5 mg DAILY PO 12/13/24 10:00 12/13/24 09:19 5 MG Atorvastatin Calcium 20 mg HS PO 12/13/24 22:00 Carvedilol 25 mg BID PO 12/13/24 10:00 12/13/24 09:19 25 MG Hydrochlorothiazide 25 mg DAILY PO 12/13/24 10:00 12/13/24 09:20 25 MG Sulfasalazine 500 mg BID PO 12/12/24 22:00 12/13/24 11:06 500 MG Cholecalciferol 2,000 unit DAILY PO 12/13/24 10:00 12/13/24 09:18 2,000 UNIT Gabapentin 300 mg DAILY PO 12/13/24 10:00 12/13/24 09:19 300 MG Famotidine 20 mg DAILY IV 12/13/24 10:00 12/13/24 09:20 20 MG Laboratory Results Laboratory Tests 12/13/24 05:18 Chemistry Test 12/12/24 13:17 12/13/24 05:18 Albumin 3.6 g/dL (3.2-4.8) 3.4 g/dL (3.2-4.8) Calcium Level 9.2 mg/dL (8.7-10.4) 8.3 mg/dL (8.7-10.4) L Magnesium Level 1.5 mg/dL (1.6-2.6) L Total Protein 5.8 g/dL (5.7-8.2) 5.6 g/dL (5.7-8.2) L Cardiac Markers Test 12/12/24 13:17 B-Type Natriuretic Peptide 419.61 pg/mL (0-100) LFT Test 12/12/24 13:17 12/13/24 05:18 Alanine Aminotransferase (ALT) 9 U/L (7-40) < 9 U/L (7-40) Alkaline Phosphatase 77 U/L (46-116) 57 U/L (46-116) Aspartate Amino Transferase (AST) 19 U/L (13-40) 12 U/L (13-40) L Total Bilirubin 0.3 mg/dL (0.2-1.0) 0.3 mg/dL (0.2-1.0) HgA1c, TSH Test 12/12/24 13:17 Hemoglobin A1c 9.3 % A1C (<5.7) H Urinalysis Test 12/12/24 12:43 Urine Color Yellow (Yellow) Urine Clarity Clear (Clear) Urine pH 6.0 (5.0-9.0) Urine Specific [place] 1.021 (1.001-1.035) Urine Protein 3+ (Negative) H Urine Ketones 1+ (Negative) H Urine Blood 1+ /uL (Negative) H Urine Nitrite Negative (Negative) Urine Bilirubin Negative (Negative) Urine Urobilinogen Normal mg/dL (Negative) Urine Leukocyte Esterase Negative /uL (Negative) Urine RBC 5 /hpf (0 - 4) Urine Microscopic WBC 7 /HPF (0-5) H Urine Squamous Epithelial Cells None seen /hpf (<5) Urine Transitional Epithelial Cells Few /hpf (<2) Urine Bacteria None seen /hpf (None Seen) Urine Glucose 2+ mg/dL (Normal) H Assessment/Plan Assessment/Plan Bilateral pneumonia Acute on chronic respiratory failure Acute hypoxic respiratory failure Chronic respiratory failure on home O2 COPD History of heart failure Chronic kidney disease Hypertension Type 2 diabetes Hyponatremia Acute kidney injury due to vasomotor nephropathy Dehydration Mild protein malnutrition Plan Continue antibiotics who Rocephin and Zithromax IV Oxygen as needed IV steroids Med neb treatments as needed Pulmonary consultation Resume home medications Discontinue hydrochlorothiazide for now Give normal saline gentle hydration 50 mL an hour Monitor closely Discussed with the daughter at the bedside Full code Advance directives discussed for 21 minutes Plan discussed with: Patient, Daughter My Orders Orders - GARY LAGUERRE MD Procedure Category Date Status Time Methylprednisolone PHA 12/13/24 Verified Sod Succ (Solu Medrol 22:00 Ceftriaxone Ivpb PHA 12/14/24 Verified Rocephin 09:00 Ceftriaxone Ivpb PHA 12/13/24 Verified Rocephin 11:30 Azithromycin 500mg/ PHA 12/14/24 Verified 250ml (Zithromax 50 10:00 Azithromycin 500mg/ PHA 12/13/24 Verified 250ml (Zithromax 50 11:30 Date of Service: December 13, 2024 Billing Provider: GARY LAGUERRE MD Common Visit Codes: [id number] INP/OBS CARE(HIGH) Secondary Visit Codes: [id number] CARE PLAN 30 MINUTES GARY LAGUERRE MD December 13, 2024 11:23
[2024-12-13] MEDS: SODIUM CHLORIDE 0.9% 1,000 ML IV SCH (11:30)
[2024-12-13] MEDS ORDERED: AZITHROMYCIN 500MG/ 250ML 250 ML IV ONE (11:30)
[2024-12-13] MEDS: cefTRIAXone 1GM/50ML D5W 50 ML IV ONE (11:32)
[2024-12-13] MEDS: DOXYCYCLINE 100MG/100ML 100 ML IV SCH (14:21)
[2024-12-13] MEDS: methylPREDNISolone SOD SUCC 40 MG/ML VL IV SCH (21:08)
[2024-12-13] MEDS: ACETAMINOPHEN 325 MG TAB PO PRN (21:09)
[2024-12-13] MEDS: ATORVASTATIN 20 MG TAB PO SCH (21:09)
--- NOTE | 2024-12-13 21:50 | DVHINCON2 ---
Date of service: December 13, [address] Orona Reason for Consultation Acute respiratory failure History of Present Illness History Source: Patient Exam Limitations: No limitations HPI Patient is a 79-year old lady with a history of hypertension, diabetes, breast cancer s/p resection and COPD on oxygen as needed who presented with shortness of breath and wheezing. Was seen in the emergency room where he was admitted for symptoms consistent with acute exacerbation of COPD and the patient was admitted for IV antibiotics and steroids. Pulmonology was consulted to assist in management. Home Meds Reported Medications Metformin Hydrochloride (Metformin Hcl) 500 Mg Tab, 500 MG PO BID for 30 Days, MG 11/17/23 Carvedilol (COREG) 12.5 Mg Tab, 25 MG PO DAILY, TAB 11/17/23 Cholecalciferol (VITAMIN D3) 2,000 Unit Tab, 2000 UNIT PO DAILY, TAB 11/17/23 Enalapril Maleate (Enalapril Maleate) 2.5 Mg Tab, 20 MG PO DAILY for 30 Days, MG 11/17/23 Gabapentin (Once-Daily) (Gabapentin) 300 Mg Tab, 600 MG PO BID, TAB 11/17/23 Hydrochlorothiazide (Hydrochlorothiazide) 25 Mg Tab, PO DAILY for 30 Days, MG 11/17/23 Trazodone Hcl (Trazodone Hcl) 50 Mg Tab, 50 MG PO HS, MG 11/17/23 Amlodipine Besylate (Amlodipine Besylate) 5 Mg Tab, PO DAILY for 30 Days, MG 11/17/23 Prednisone (PREDNISONE) 1 Mg Tb, 5 MG PO BID, TAB 11/17/23 Atorvastatin Calcium (ATORVASTATIN CALCIUM) 20 Mg Tab, 1 TAB PO DAILY, #30 TAB 5 Refills 11/17/23 Sulfasalazine (Sulfasalazine) 500 Mg Tab, 500 MG PO BID, MG 11/17/23 Discontinued Reported Medications Glipizide (Glipizide Er) 10 Mg Tab, 1 TAB PO DAILY, #90 TAB 1 Refill 11/17/23 Past Medical History Cardiac: HTN Pulmonary: COPD Central Nervous System: No pertinent Hx GI: No pertinent Hx Hemotology/Oncology: Cancer Hepatobiliary: No pertinent Hx Psychiatric: No pertinent Hx Musculoskeletal: No pertinent Hx Rheumotologic: No pertinent Hx Infectious Disease: No peritnent Hx ENT: No pertinent Hx Renal/: No pertinent Hx Endocrine: NIDDM Dermatology: No pertinent Hx Past Surgical History: No pertinent Hx Family History: Cancer, DM Patient Family History: Alcoholism Diabetes mellitus G8 MOTHER G8 FATHER 19 CHILD Malignant neoplasm of breast G8 MOTHER Smoker: No Hx (Negative) Alocohol: None Drugs: None Lives with: With family Domestic Violence: Neg Review of Systems Constitutional: No symptom reported Ears, Nose, & Throat: No symptom reported Eyes: No symptom reported Pulmonary/Respiratory: Dyspnea, Other (wheezing ) Cardiovascular: No symptom reported Gastrointestinal: No symptom reported Genitourinary: No symptom reported Musculoskeletal: No symptom reported Skin: No symptom reported Psychiatric: No symptom reported Endocrine: No symptom reported Hemotologic/Lymphatic: No symptom reported H&P Exam Vital Signs Vital Signs Date Time Temp Pulse Resp B/P (MAP) Pulse Ox O2 Delivery O2 Flow Rate FiO2 12/13/24 21:28 74 135/53 12/13/24 20:05 Nasal Cannula* 2 28 12/13/24 18:25 18 99 12/13/24 16:55 98.1 98.1 General Appeara: Well developed, Well nourished, Normal Appearance Head Exam: Normal inspection Neck Exam: Normal inspection, Non-tender, Normal alignment Eye Exam: bilateral eye Normal inspection, bilateral eye PERRL, bilateral eye EOMI Ear Exam: bilateral ear Auricle normal, bilateral ear Canal normal, bilateral ear TM normal Nasal Exam: Normal inspection Mouth: Normal Inspection Pulmonary/Respiratory: Wheezing Cardiovascular/Chest: Normal inspection Peripheral Pulses: 4+ Radial (R), 4+ Radial (L), 4+ Brachial (R), 4+ Brachial (L) Abdominal Exam: Normal bowel sounds Labs/Xrays Labs Test 12/13/24 21:12 12/13/24 05:18 12/12/24 16:25 12/12/24 13:17 Range/Units POC Glucose 268 H 70-106 mg/dl White Blood Count 6.4 4.4-10.8 10^3/uL Red Blood Count 3.73 L 4.0-5.20 10^6/uL Hemoglobin 10.7 #L 12.2-16.2 g/dL Hematocrit 31.4 #L 36.0-46.0 % Mean Corpuscular Volume 84.2 80.0-100.0 fL Mean Corpuscular Hemoglobin 28.7 28.0-32.0 pg Mean Corpuscular Hemoglobin Concent 34.1 32.0-36.0 g/dL Red Cell Distribution Width 15.7 H 11.8-14.3 % Platelet Count 167 140-450 10^3/uL Mean Platelet Volume 7.0 6.9-10.8 fL Neutrophils (%) (Auto) 87.2 H 37.0-80.0 % Lymphocytes (%) (Auto) 10.2 10.0-50.0 % Monocytes (%) (Auto) 2.5 0.0-12.0 % Eosinophils (%) (Auto) 0.0 0.0-7.0 % Basophils (%) (Auto) 0.1 0.0-2.0 % Neutrophils # (Auto) 5.6 1.6-8.6 10 ^3/uL Lymphocytes # (Auto) 0.7 0.4-5.4 10 ^3/uL Monocytes # (Auto) 0.2 0-1.3 10 ^3/uL Eosinophils # (Auto) 0 0-0.8 10 ^3/uL Basophils # (Auto) 0 0-0.2 10 ^3/uL Nucleated Red Blood Cells 0.1 % Sodium Level 131 L 136-145 mmol/L Potassium Level 4.0 3.5-5.1 mmol/L Chloride Level 96 L 98-107 mmol/L Carbon Dioxide Level 22 20-31 mmol/L Anion Gap 13 5-15 Blood Urea Nitrogen 43 #H 9-23 mg/dL Creatinine 2.24 H 0.550-1.02 mg/dL Glomerular Filtration Rate Calc 22 >90 mL/min BUN/Creatinine Ratio 19.2 10.0-20.0 Serum Glucose 197 H 74-106 mg/dL Calcium Level 8.3 L 8.7-10.4 mg/dL Total Bilirubin 0.3 0.2-1.0 mg/dL Aspartate Amino Transferase (AST) 12 L 13-40 U/L Alanine Aminotransferase (ALT) < 9 7-40 U/L Alkaline Phosphatase 57 46-116 U/L Total Protein 5.6 L 5.7-8.2 g/dL Albumin 3.4 3.2-4.8 g/dL Troponin I High Sensitivity 28 </=34 ng/L Hemoglobin A1c 9.3 H <5.7 % A1C Lactic Acid Level 1.5 0.4-2.0 mmol/L Magnesium Level 1.5 L 1.6-2.6 mg/dL B-Type Natriuretic Peptide 419.61 0-100 pg/mL Test 12/12/24 12:43 12/12/24 12:42 Range/Units Urine Color Yellow Yellow Urine Clarity Clear Clear Urine pH 6.0 5.0-9.0 Urine Specific [place] 1.021 1.001-1.035 Urine Protein 3+ H Negative Urine Ketones 1+ H Negative Urine Blood 1+ H Negative /uL Urine Nitrite Negative Negative Urine Bilirubin Negative Negative Urine Urobilinogen Normal Negative mg/dL Urine Leukocyte Esterase Negative Negative /uL Urine RBC 5 0 - 4 /hpf Urine Microscopic WBC 7 H 0-5 /HPF Urine Squamous Epithelial Cells None seen <5 /hpf Urine Transitional Epithelial Cells Few <2 /hpf Urine Bacteria None seen None Seen /hpf Urine Glucose 2+ H Normal mg/dL Influenza Type A Antigen Negative Negative Influenza Type B Antigen Negative Negative SARS-CoV-2 Antigen (Rapid) Negative NEGATIVE Microbiology Date/Time Source Procedure Growth Status 12/12/24 13:17 Blood Blood Culture - Preliminary NO GROWTH AFTER 24 HOURS OF INCUBATION. Resulted Assessment/Plan Plan Impression Acute hypoxemic respiratory failure Acute COPD exacerbation Dyspnea Cough Patient seen and examined Events Low oxygen requirements On 2 liters nasal cannula Vital signs stable Labs and imaging reviewed Chest x-ray highly abnormal Prominent pulmonary vessels suggestive of pulmonary hypertension Hyperinflated lungs consistent with COPD S/p right axillary lymph node dissection Osteoporotic bones Calcified lymph nodes Right lung nodules Management Supplemental oxygen Titrate to maintain sats 90% or above Incentive spirometry Antibiotics Bronchodilators Steroids for COPD management Monitor renal function Monitor electrolytes Supplement as needed Obtain CT of the chest without contrast to better characterize lung parenchyma Obtain ultrasound of the lower extremities to rule out clots DVT prophylaxis Plan discussed with: Patient TRAM PEREIRA MD December 13, 2024 21:50
--- NOTE | 2024-12-13 23:47 | DVH ---
Bilateral lower extremity venous duplex Clinical History: swelling Comparison: None Technique: Duplex Doppler evaluation of the deep venous systems of both lower extremities from the common femora l veins to the popliteal veins including color Doppler and spectral/pulsed waveform analysis was perf ormed. Findings: RIGHT SIDE: The common femoral vein demonstrates appropriate compressibility and waveform variability. There is compressibility/patency of the great saphenous vein at the proximal thigh. The femoral vein demonstrates appropriate compressibility and waveform variability. The deep femoral vein demonstrates appropriate compressibility and waveform variability. The popliteal vein demonstrates appropriate compressibility and waveform variability. There is normal compressibility at the tibioperoneal trunk. LEFT SIDE: The common femoral vein demonstrates appropriate compressibility and waveform variability. There is compressibility/patency of the great saphenous vein at the proximal thigh. The femoral vein demonstrates appropriate compressibility and waveform variability. The deep femoral vein demonstrates appropriate compressibility and waveform variability. The popliteal vein demonstrates appropriate compressibility and waveform variability. There is normal compressibility at the tibioperoneal trunk. Impression: No evidence of right or left femoropopliteal venous thrombosis.
[2024-12-14] VITALS (14 sets, daily range): BP systolic 114–143; BP diastolic 50–65; PULSE 60–90; RESP 16–19; TEMP 97.1–98; O2SAT 94–100
[2024-12-14 06:43] LABS: Potassium 3.6 mmol/L (3.5-5.1)
[2024-12-14 06:44] LABS: Anion Gap 12 (5-15); Carbon Dioxide 23 mmol/L (20-31)
[2024-12-14 06:48] LABS: Basophils # (auto) 0 10 ^3/uL (0-0.2); Basophils % (auto) 0.2 % (0.0-2.0); Eosinophils # (auto) 0 10 ^3/uL (0-0.8); Lymphocytes # (auto) 0.5 10 ^3/uL (0.4-5.4); Lymphocytes % (auto) 6.9 % (10.0-50.0); Mean Corpuscular Hemoglobin 28.7 pg (28.0-32.0); Mean Corpuscular Hgb Conc. 34.4 g/dL (32.0-36.0); Mean Corpuscular Volume 83.4 fL (80.0-100.0); Monocytes # (auto) 0.2 10 ^3/uL (0-1.3); Monocytes % (auto) 3.1 % (0.0-12.0); Neutrophils # (auto) 6.5 10 ^3/uL (1.6-8.6); Neutrophils % (auto) 89.8 % (37.0-80.0); Platelet Count (auto) 172 10^3/uL (140-450); Red Blood Cells 3.84 10^6/uL (4.0-5.20); Red Cell Distribution Width 15.9 % (11.8-14.3); White Blood Cell 7.3 10^3/uL (4.4-10.8)
[2024-12-14 06:50] LABS: BUN/Creatinine Ratio 23.4 (10.0-20.0); Magnesium 2.1 mg/dL (1.6-2.6)
[2024-12-14 06:57] LABS: Blood Urea Nitrogen 50 mg/dL (9-23); Calcium 8.4 mg/dL (8.7-10.4); Chloride 96 mmol/L (98-107); Glucose 191 mg/dL (74-106); Sodium 131 mmol/L (136-145)
[2024-12-14] MEDS: cefTRIAXone 1GM/50ML D5W 50 ML IV SCH (09:08)
--- NOTE | 2024-12-14 09:48 | DVH ---
Procedure: CT CHEST WITHOUT CONTRAST Reason for study/Clinical History: pulmonary nodules Comparison Study: None TECHNIQUE: Multidetector CT of the chest was performed from the lung apices to the upper abdomen with out the use of intravenous contract. Axial, coronal and sagittal multiplanar reformats were performed . Radiation Dose Information: CT Dose: CTDI volume is 4.56 mGy. Dose-length product is 158.76 mGy*cm The dose indicators for CT are the volume Computed Tomography (CT) Dose Index (CTDIvol) and the Dose Length Product (DLP), and are measured in units of mGy and mGy-cm, respectively. These indicators are not patient dose, but values generated from the CT scanner acquisition factors. The report includes radiation exposure data for exposures received during this examination. FINDINGS: Lower neck: Moderate Diffuse esophageal thickening; nonspecific. Debris or ingested contents are pres ent within the esophagus. Lungs: Multifocal diffuse peribronchial thickening and peripheral tree-in-bud nodularity. Heart/Vascular Structures: Cardiomegaly. Coronary artery calcifications. Vascular calcifications of t he aorta. Lymph Nodes: No adenopathy Pleura: No pleural effusion or significant pneumothorax. Musculoskeletal: No acute osseous abnormality. Soft tissues: Normal. Upper abdomen: Limited portions of the upper abdomen are unremarkable. IMPRESSION: Findings are suspicious for acute atypical infectious or inflammatory process; possibly aspiration pn eumonia given diffuse esophageal thickening and debris within the esophagus.
[2024-12-14] MEDS ORDERED: AZITHROMYCIN 500MG/ 250ML 250 ML IV SCH (10:00)
--- NOTE | 2024-12-14 11:30 | DVHPN2 ---
Subjective Doing better Stable No new complaints Changes from previous H/P or p: Changes Respiratory: Cough Objective Vitals Vital Signs Date Time Temp Pulse Resp B/P (MAP) Pulse Ox O2 Delivery O2 Flow Rate FiO2 12/14/24 10:06 97 95/45 12/14/24 09:39 17 100 12/14/24 09:33 Nasal Cannula 2.0 12/14/24 09:33 28 12/14/24 09:00 98.0 98.0 Intake/Output Intake and Output 12/14/24 07:00 Intake Total 1360 ml Balance 1360 ml Intake Oral 1260 ml IV Total 100 ml # Voids 6 General Appearance: Alert, Oriented X3, Cooperative Lungs: Other (Bilateral crackles at the bases) Cardiovascular: Regular rate, Normal S1, Normal S2 Abdomen: Normal bowel sounds, Soft, No tenderness Extremities: No edema Medications Current Medications Medications Dose Ordered Sig/Addison Route Start Time Stop Time Status Last Admin Dose Admin Ondansetron HCl 4 mg Q4HP PRN IV 12/12/24 16:15 Enoxaparin Sodium 30 mg DAILY SC 12/13/24 10:00 12/14/24 10:01 30 MG Acetaminophen 650 mg Q6HP PRN PO 12/12/24 16:15 12/13/24 21:09 650 MG Diagnostic Test (Pha) 1 strip ACHS 12/12/24 17:00 12/14/24 06:11 1 STRIP Insulin Human Regular ACHS SC 12/12/24 17:00 12/14/24 06:13 4 UNITS Dextrose 50 ml UD PRN IV 12/12/24 16:15 Albuterol 2.5 mg Q4HWA NEB 12/12/24 18:00 12/14/24 09:33 2.5 MG Ipratropium [place] 0.5 mg Q4HWA NEB 12/12/24 18:00 12/14/24 09:33 0.5 MG Amlodipine Besylate 5 mg DAILY PO 12/13/24 10:00 12/14/24 10:06 5 MG Atorvastatin Calcium 20 mg HS PO 12/13/24 22:00 12/13/24 21:09 20 MG Carvedilol 25 mg BID PO 12/13/24 10:00 12/14/24 10:06 25 MG Sulfasalazine 500 mg BID PO 12/12/24 22:00 12/13/24 21:46 500 MG Cholecalciferol 2,000 unit DAILY PO 12/13/24 10:00 12/14/24 10:01 2,000 UNIT Gabapentin 300 mg DAILY PO 12/13/24 10:00 12/14/24 10:01 300 MG Famotidine 20 mg DAILY IV 12/13/24 10:00 12/14/24 10:01 20 MG Methylprednisolone Sodium Succinate 40 mg BID IV 12/13/24 22:00 12/14/24 10:01 40 MG Ceftriaxone Sodium 50 ml @ 100 mls/hr DAILY@09 IV 12/14/24 09:00 12/14/24 09:08 100 MLS/HR Sodium Chloride 1,000 ml @ 50 mls/hr Q20H IV 12/13/24 11:30 12/14/24 07:21 50 MLS/HR Doxycycline Hyclate 100 ml @ 50 mls/hr Q12H IV 12/13/24 11:45 12/13/24 23:17 50 MLS/HR Laboratory Results Laboratory Tests 12/14/24 05:39 Chemistry Test 12/14/24 05:39 Calcium Level 8.4 mg/dL (8.7-10.4) L Magnesium Level 2.1 mg/dL (1.6-2.6) Urinalysis Test 12/12/24 12:43 Urine Color Yellow (Yellow) Urine Clarity Clear (Clear) Urine pH 6.0 (5.0-9.0) Urine Specific [place] 1.021 (1.001-1.035) Urine Protein 3+ (Negative) H Urine Ketones 1+ (Negative) H Urine Blood 1+ /uL (Negative) H Urine Nitrite Negative (Negative) Urine Bilirubin Negative (Negative) Urine Urobilinogen Normal mg/dL (Negative) Urine Leukocyte Esterase Negative /uL (Negative) Urine RBC 5 /hpf (0 - 4) Urine Microscopic WBC 7 /HPF (0-5) H Urine Squamous Epithelial Cells None seen /hpf (<5) Urine Transitional Epithelial Cells Few /hpf (<2) Urine Bacteria None seen /hpf (None Seen) Urine Glucose 2+ mg/dL (Normal) H Microbiology Microbiology Date/Time Source Procedure Growth Status 12/12/24 13:17 Blood Blood Culture - Preliminary NO GROWTH AFTER 24 HOURS OF INCUBATION. Resulted Assessment/Plan Assessment/Plan Bilateral pneumonia Acute on chronic respiratory failure Acute hypoxic respiratory failure Chronic respiratory failure on home O2 COPD History of heart failure Chronic kidney disease Hypertension Type 2 diabetes Hyponatremia Acute kidney injury due to vasomotor nephropathy Dehydration Mild protein malnutrition Plan Continue antibiotics who Rocephin and Zithromax IV Oxygen as needed IV steroids Med neb treatments as needed Pulmonary consultation Resume home medications Discontinue hydrochlorothiazide for now Give normal saline gentle hydration 50 mL an hour Monitor closely Discussed with the daughter at the bedside Full code Advance directives discussed for 21 minutes 12/14/2024: Continue IV antibiotics Continue oxygen as needed IV steroids Monitor closely Plan discussed with: Patient My Orders Orders - GARY LAGUERRE MD Procedure Category Date Status Time Doxycycline PHA 12/13/24 In Process 100mg/100ml 11:45 Date of Service: December 14, 2024 Billing Provider: GARY LAGUERRE MD Common Visit Codes: [id number] INP/OBS CARE(HIGH) GARY LAGUERRE MD December 14, 2024 11:30
[2024-12-14] MEDS ORDERED: LEVEMIR SC (17:08)
[2024-12-14] MEDS: INSULIN LANTUS (GLARGINE) 1 /0.01ml (100units/ml) SC SCH (21:14)
[2024-12-15] VITALS (19 sets, daily range): BP systolic 118–147; BP diastolic 53–68; PULSE 64–89; RESP 16–20; TEMP 97.3–98.2; O2SAT 94–100
--- NOTE | 2024-12-15 16:35 | DVHPN2 ---
Subjective Better Less cough Changes from previous H/P or p: Changes Respiratory: Cough Objective Vitals Vital Signs Date Time Temp Pulse Resp B/P (MAP) Pulse Ox O2 Delivery O2 Flow Rate FiO2 12/15/24 13:31 81 18 100 12/15/24 13:19 Nasal Cannula 2.0 12/15/24 13:19 28 12/15/24 13:00 97.5 118/55 (76) 97.5 Intake/Output Intake and Output 12/15/24 07:00 Intake Total 2825 ml Output Total 1575 ml Balance 1250 ml Intake Oral 1725 ml IV Total 1100 ml Output Urine Total 1575 ml General Appearance: Alert, Oriented X3, Cooperative Lungs: Other (Bilateral crackles at the bases) Cardiovascular: Regular rate, Normal S1, Normal S2 Abdomen: Normal bowel sounds, Soft, No tenderness Extremities: No edema Medications Current Medications Medications Dose Ordered Sig/Addison Route Start Time Stop Time Status Last Admin Dose Admin Ondansetron HCl 4 mg Q4HP PRN IV 12/12/24 16:15 Enoxaparin Sodium 30 mg DAILY SC 12/13/24 10:00 12/15/24 11:16 30 MG Acetaminophen 650 mg Q6HP PRN PO 12/12/24 16:15 12/14/24 21:34 650 MG Diagnostic Test (Pha) 1 strip ACHS 12/12/24 17:00 12/15/24 11:30 1 STRIP Insulin Human Regular ACHS SC 12/12/24 17:00 12/15/24 11:30 3 UNITS Dextrose 50 ml UD PRN IV 12/12/24 16:15 Albuterol 2.5 mg Q4HWA NEB 12/12/24 18:00 12/15/24 13:19 2.5 MG Ipratropium [place] 0.5 mg Q4HWA NEB 12/12/24 18:00 12/15/24 13:19 0.5 MG Amlodipine Besylate 5 mg DAILY PO 12/13/24 10:00 12/15/24 10:18 5 MG Atorvastatin Calcium 20 mg HS PO 12/13/24 22:00 12/14/24 21:17 20 MG Carvedilol 25 mg BID PO 12/13/24 10:00 12/15/24 10:16 25 MG Sulfasalazine 500 mg BID PO 12/12/24 22:00 12/15/24 10:16 500 MG Cholecalciferol 2,000 unit DAILY PO 12/13/24 10:00 12/15/24 11:16 2,000 UNIT Gabapentin 300 mg DAILY PO 12/13/24 10:00 12/14/24 10:01 300 MG Famotidine 20 mg DAILY IV 12/13/24 10:00 12/15/24 10:14 20 MG Methylprednisolone Sodium Succinate 40 mg BID IV 12/13/24 22:00 12/15/24 10:14 40 MG Ceftriaxone Sodium 50 ml @ 100 mls/hr DAILY@09 IV 12/14/24 09:00 12/15/24 10:13 100 MLS/HR Sodium Chloride 1,000 ml @ 50 mls/hr Q20H IV 12/13/24 11:30 12/15/24 05:38 50 MLS/HR Doxycycline Hyclate 100 ml @ 50 mls/hr Q12H IV 12/13/24 11:45 12/15/24 12:22 50 MLS/HR Insulin Glargine 22 units HS SC 12/14/24 22:00 12/14/24 21:14 22 UNITS Laboratory Results Laboratory Tests 12/14/24 05:39 Urinalysis Test 12/12/24 12:43 Urine Color Yellow (Yellow) Urine Clarity Clear (Clear) Urine pH 6.0 (5.0-9.0) Urine Specific [place] 1.021 (1.001-1.035) Urine Protein 3+ (Negative) H Urine Ketones 1+ (Negative) H Urine Blood 1+ /uL (Negative) H Urine Nitrite Negative (Negative) Urine Bilirubin Negative (Negative) Urine Urobilinogen Normal mg/dL (Negative) Urine Leukocyte Esterase Negative /uL (Negative) Urine RBC 5 /hpf (0 - 4) Urine Microscopic WBC 7 /HPF (0-5) H Urine Squamous Epithelial Cells None seen /hpf (<5) Urine Transitional Epithelial Cells Few /hpf (<2) Urine Bacteria None seen /hpf (None Seen) Urine Glucose 2+ mg/dL (Normal) H Microbiology Microbiology Date/Time Source Procedure Growth Status 12/12/24 13:17 Blood Blood Culture - Preliminary NO GROWTH AFTER 72 HOURS OF INCUBATION. Resulted Assessment/Plan Assessment/Plan Bilateral pneumonia Acute on chronic respiratory failure Acute hypoxic respiratory failure Chronic respiratory failure on home O2 COPD History of heart failure Chronic kidney disease Hypertension Type 2 diabetes Hyponatremia Acute kidney injury due to vasomotor nephropathy Dehydration Mild protein malnutrition Plan Continue antibiotics who Rocephin and Zithromax IV Oxygen as needed IV steroids Med neb treatments as needed Pulmonary consultation Resume home medications Discontinue hydrochlorothiazide for now Give normal saline gentle hydration 50 mL an hour Monitor closely Discussed with the daughter at the bedside Full code Advance directives discussed for 21 minutes 12/14/2024: Continue IV antibiotics Continue oxygen as needed IV steroids Monitor closely 12/15/2024: Continue the IV antibiotics Continue the current management with oxygen as needed, IV steroids, Discussed with the family at the bedside Discharge planning for tomorrow Incentive spirometry Plan discussed with: Patient, Son My Orders Orders - GARY LAGUERRE MD Procedure Category Date Status Time Incentive Spirometry ORDERS 12/15/24 Transmitted 10:33 Notify Provider NOTICE 12/15/24 Transmitted Malnutrition 15:02 Nutritional NOURISH 12/15/24 Transmitted Supplements 15:02 Dietary NOTICE 12/15/24 Transmitted Recommendations 15:02 Date of Service: December 15, 2024 Billing Provider: GARY LAGUERRE MD Common Visit Codes: [id number] INP/OBS CARE(HIGH) GARY LAGUERRE MD December 15, 2024 16:35
--- NOTE | 2024-12-15 17:46 | DVHPN2 ---
Progress Note - Dictate Date Seen: December 15, 2024 Medical Necessity Reason Pt with a Central, PICC or Fol: No vital signs Vital Sign Date Time Temp Pulse Resp B/P (MAP) Pulse Ox O2 Delivery O2 Flow Rate FiO2 12/15/24 13:31 81 18 100 12/15/24 13:19 Nasal Cannula 2.0 12/15/24 13:19 28 12/15/24 13:00 97.5 118/55 (76) 97.5 Total Intake and Output 12/14/24 12/14/24 12/15/24 15:00 23:00 07:00 Intake Total 150 ml 1525 ml 1150 ml Output Total 975 ml 600 ml Balance 150 ml 550 ml 550 ml medications Current Medications Medications Dose Ordered Sig/Addison Route Start Time Stop Time Status Last Admin Dose Admin Ondansetron HCl 4 mg Q4HP PRN IV 12/12/24 16:15 Enoxaparin Sodium 30 mg DAILY SC 12/13/24 10:00 12/15/24 11:16 30 MG Acetaminophen 650 mg Q6HP PRN PO 12/12/24 16:15 12/14/24 21:34 650 MG Diagnostic Test (Pha) 1 strip ACHS 12/12/24 17:00 12/15/24 16:56 1 STRIP Insulin Human Regular ACHS SC 12/12/24 17:00 12/15/24 17:00 8 UNITS Dextrose 50 ml UD PRN IV 12/12/24 16:15 Albuterol 2.5 mg Q4HWA NEB 12/12/24 18:00 12/15/24 13:19 2.5 MG Ipratropium [place] 0.5 mg Q4HWA NEB 12/12/24 18:00 12/15/24 13:19 0.5 MG Amlodipine Besylate 5 mg DAILY PO 12/13/24 10:00 12/15/24 10:18 5 MG Atorvastatin Calcium 20 mg HS PO 12/13/24 22:00 12/14/24 21:17 20 MG Carvedilol 25 mg BID PO 12/13/24 10:00 12/15/24 10:16 25 MG Sulfasalazine 500 mg BID PO 12/12/24 22:00 12/15/24 10:16 500 MG Cholecalciferol 2,000 unit DAILY PO 12/13/24 10:00 12/15/24 11:16 2,000 UNIT Gabapentin 300 mg DAILY PO 12/13/24 10:00 12/14/24 10:01 300 MG Famotidine 20 mg DAILY IV 12/13/24 10:00 12/15/24 10:14 20 MG Methylprednisolone Sodium Succinate 40 mg BID IV 12/13/24 22:00 12/15/24 10:14 40 MG Ceftriaxone Sodium 50 ml @ 100 mls/hr DAILY@09 IV 12/14/24 09:00 12/15/24 10:13 100 MLS/HR Sodium Chloride 1,000 ml @ 50 mls/hr Q20H IV 12/13/24 11:30 12/15/24 05:38 50 MLS/HR Doxycycline Hyclate 100 ml @ 50 mls/hr Q12H IV 12/13/24 11:45 12/15/24 12:22 50 MLS/HR Insulin Glargine 22 units HS SC 12/14/24 22:00 12/14/24 21:14 22 UNITS laboratory and microbiology Laboratory Tests 12/14/24 05:39 Test 12/14/24 05:39 Range/Units Serum Glucose 191 H 74-106 mg/dL Assessment/Plan Impression Acute hypoxemic respiratory failure Acute COPD exacerbation Dyspnea Cough Patient seen and examined Events Low oxygen requirements On 2 liters nasal cannula No acute events Labs and imaging reviewed Management Supplemental oxygen Titrate to maintain sats 90% or above Incentive spirometry Antibiotics Bronchodilators Steroids for COPD management Monitor renal function Monitor electrolytes Supplement as needed Okay to discharge from pulmonary standpoint DVT prophylaxis Dietary Evaluation Review Recommendations by RD: Dietary education by RD, Protein Supplementation Comments: 1) Consider adding renal restriction to diet order d/t compromised kidney function. 2) Initite Nepro bid. Encourage optimal PO intake. 3) Refer to outpatient RD/CD[facility] for diabetes education 4) Follow-up with cardiology, pulmonology, and nephrology 5) Continue to monitor I&O, labs, and skin integrity Expected Outcomes/Goals: 1) appetite and labs to improve 2) f/u in 3-5 days Plan discussed with: Patient TRAM PEREIRA MD December 15, 2024 17:46
[2024-12-16] VITALS (12 sets, daily range): BP systolic 136–147; BP diastolic 52–70; PULSE 61–70; RESP 16–19; TEMP 97.7–97.9; O2SAT 98–100
--- NOTE | 2024-12-16 09:34 | DVHPN2 ---
Progress Note - Dictate Date Seen: December 16, 2024 Medical Necessity Reason Pt with a Central, PICC or Fol: No vital signs Vital Sign Date Time Temp Pulse Resp B/P (MAP) Pulse Ox O2 Delivery O2 Flow Rate FiO2 12/16/24 09:00 97.9 65 16 136/66 (89) 100 97.9 12/16/24 07:00 Nasal Cannula* 2 28 Total Intake and Output 12/15/24 12/15/24 12/16/24 14:59 22:59 06:59 Intake Total 600 ml 240 ml 1920 ml Output Total 750 ml 800 ml Balance 600 ml -510 ml 1120 ml medications Current Medications Medications Dose Ordered Sig/Addison Route Start Time Stop Time Status Last Admin Dose Admin Ondansetron HCl 4 mg Q4HP PRN IV 12/12/24 16:15 Enoxaparin Sodium 30 mg DAILY SC 12/13/24 10:00 12/15/24 11:16 30 MG Acetaminophen 650 mg Q6HP PRN PO 12/12/24 16:15 12/15/24 21:26 650 MG Diagnostic Test (Pha) 1 strip ACHS 12/12/24 17:00 12/16/24 05:37 1 STRIP Insulin Human Regular ACHS SC 12/12/24 17:00 12/16/24 05:37 3 UNITS Dextrose 50 ml UD PRN IV 12/12/24 16:15 Albuterol 2.5 mg Q4HWA NEB 12/12/24 18:00 12/16/24 07:01 2.5 MG Ipratropium Freedom 0.5 mg Q4HWA NEB 12/12/24 18:00 12/16/24 07:01 0.5 MG Amlodipine Besylate 5 mg DAILY PO 12/13/24 10:00 12/15/24 10:18 5 MG Atorvastatin Calcium 20 mg HS PO 12/13/24 22:00 12/15/24 21:12 20 MG Carvedilol 25 mg BID PO 12/13/24 10:00 12/15/24 21:12 25 MG Sulfasalazine 500 mg BID PO 12/12/24 22:00 12/15/24 21:12 500 MG Cholecalciferol 2,000 unit DAILY PO 12/13/24 10:00 12/15/24 11:16 2,000 UNIT Gabapentin 300 mg DAILY PO 12/13/24 10:00 12/14/24 10:01 300 MG Famotidine 20 mg DAILY IV 12/13/24 10:00 12/15/24 10:14 20 MG Methylprednisolone Sodium Succinate 40 mg BID IV 12/13/24 22:00 12/15/24 21:13 40 MG Ceftriaxone Sodium 50 ml @ 100 mls/hr DAILY@09 IV 12/14/24 09:00 12/15/24 10:13 100 MLS/HR Sodium Chloride 1,000 ml @ 50 mls/hr Q20H IV 12/13/24 11:30 12/16/24 05:38 50 MLS/HR Doxycycline Hyclate 100 ml @ 50 mls/hr Q12H IV 12/13/24 11:45 12/15/24 22:58 50 MLS/HR Insulin Glargine 22 units HS SC 12/14/24 22:00 12/15/24 21:13 22 UNITS laboratory and microbiology Laboratory Tests 12/14/24 05:39 Test 12/14/24 05:39 Range/Units Serum Glucose 191 H 74-106 mg/dL Assessment/Plan Impression Acute hypoxemic respiratory failure Acute COPD exacerbation Dyspnea Cough Patient seen and examined Events Low oxygen requirements On 2 liters nasal cannula No distress Labs and imaging reviewed Management Supplemental oxygen Titrate to maintain sats 90% or above Incentive spirometry Antibiotics Bronchodilators Steroids for COPD management Monitor renal function Monitor electrolytes Supplement as needed Okay to discharge from pulmonary standpoint DVT prophylaxis Dietary Evaluation Review Recommendations by RD: Dietary education by RD, Protein Supplementation Comments: 1) Consider adding renal restriction to diet order d/t compromised kidney function. 2) Initite Nepro bid. Encourage optimal PO intake. 3) Refer to outpatient RD/[facility] for diabetes education 4) Follow-up with cardiology, pulmonology, and nephrology 5) Continue to monitor I&O, labs, and skin integrity Expected Outcomes/Goals: 1) appetite and labs to improve 2) f/u in 3-5 days Plan discussed with: Patient TRAM PEREIRA MD December 16, 2024 09:34
[2024-12-16] MEDS ORDERED: DOXY1CAP57 PO (11:38)
[2024-12-16] MEDS ORDERED: AUG875T PO (11:38)
--- NOTE | 2024-12-16 13:49 | DVHDS2 ---
Discharge Summary Date of Admission December 12, 2024 at 16:07 Date of Discharge: December 16, 2024 Labs/Diagnostic Data: Laboratory Results Test 12/16/24 11:54 12/14/24 05:39 12/13/24 05:18 12/12/24 16:25 POC Glucose 140 mg/dl (70-106) White Blood Count 7.3 10^3/uL (4.4-10.8) Red Blood Count 3.84 10^6/uL (4.0-5.20) Hemoglobin 11.0 g/dL (12.2-16.2) Hematocrit 32.0 % (36.0-46.0) Mean Corpuscular Volume 83.4 fL (80.0-100.0) Mean Corpuscular Hemoglobin 28.7 pg (28.0-32.0) Mean Corpuscular Hemoglobin Concent 34.4 g/dL (32.0-36.0) Red Cell Distribution Width 15.9 % (11.8-14.3) Platelet Count 172 10^3/uL (140-450) Mean Platelet Volume 7.3 fL (6.9-10.8) Neutrophils (%) (Auto) 89.8 % (37.0-80.0) Lymphocytes (%) (Auto) 6.9 % (10.0-50.0) Monocytes (%) (Auto) 3.1 % (0.0-12.0) Eosinophils (%) (Auto) 0.0 % (0.0-7.0) Basophils (%) (Auto) 0.2 % (0.0-2.0) Neutrophils # (Auto) 6.5 10 ^3/uL (1.6-8.6) Lymphocytes # (Auto) 0.5 10 ^3/uL (0.4-5.4) Monocytes # (Auto) 0.2 10 ^3/uL (0-1.3) Eosinophils # (Auto) 0 10 ^3/uL (0-0.8) Basophils # (Auto) 0 10 ^3/uL (0-0.2) Nucleated Red Blood Cells 0.0 % Sodium Level 131 mmol/L (136-145) Potassium Level 3.6 mmol/L (3.5-5.1) Chloride Level 96 mmol/L (98-107) Carbon Dioxide Level 23 mmol/L (20-31) Anion Gap 12 (5-15) Blood Urea Nitrogen 50 mg/dL (9-23) Creatinine 2.14 mg/dL (0.550-1.02) Glomerular Filtration Rate Calc 23 mL/min (>90) BUN/Creatinine Ratio 23.4 (10.0-20.0) Serum Glucose 191 mg/dL (74-106) Calcium Level 8.4 mg/dL (8.7-10.4) Magnesium Level 2.1 mg/dL (1.6-2.6) Total Bilirubin 0.3 mg/dL (0.2-1.0) Aspartate Amino Transferase (AST) 12 U/L (13-40) Alanine Aminotransferase (ALT) < 9 U/L (7-40) Alkaline Phosphatase 57 U/L (46-116) Total Protein 5.6 g/dL (5.7-8.2) Albumin 3.4 g/dL (3.2-4.8) Troponin I High Sensitivity 28 ng/L (</=34) Test 12/12/24 13:17 12/12/24 12:43 12/12/24 12:42 Hemoglobin A1c 9.3 % A1C (<5.7) Lactic Acid Level 1.5 mmol/L (0.4-2.0) B-Type Natriuretic Peptide 419.61 pg/mL (0-100) Urine Color Yellow (Yellow) Urine Clarity Clear (Clear) Urine pH 6.0 (5.0-9.0) Urine Specific [place] 1.021 (1.001-1.035) Urine Protein 3+ (Negative) Urine Ketones 1+ (Negative) Urine Blood 1+ /uL (Negative) Urine Nitrite Negative (Negative) Urine Bilirubin Negative (Negative) Urine Urobilinogen Normal mg/dL (Negative) Urine Leukocyte Esterase Negative /uL (Negative) Urine RBC 5 /hpf (0 - 4) Urine Microscopic WBC 7 /HPF (0-5) Urine Squamous Epithelial Cells None seen /hpf (<5) Urine Transitional Epithelial Cells Few /hpf (<2) Urine Bacteria None seen /hpf (None Seen) Urine Glucose 2+ mg/dL (Normal) Influenza Type A Antigen Negative (Negative) Influenza Type B Antigen Negative (Negative) SARS-CoV-2 Antigen (Rapid) Negative (NEGATIVE) Other Laboratory Tests 12/14/24 05:39 Brief Hx & Hospital Course: Final diagnoses: Bilateral pneumonia Acute on chronic respiratory failure Acute hypoxic respiratory failure Chronic respiratory failure on home O2 COPD History of heart failure Chronic kidney disease Hypertension Type 2 diabetes Hyponatremia Acute kidney injury due to vasomotor nephropathy Dehydration Mild protein malnutrition 79-year-old female who was admitted for shortness of breaths and cough and hypoxia She was treated for pneumonia with IV antibiotics Over the hospitalization she improved significantly Today she is back to her baseline She will be discharged home on oral antibiotics Follow up with the primary care physician as soon as possible and resume the home medications Condition at Discharge: Stable Final Diagnosis/Problems List Bilateral pneumonia Acute on chronic respiratory failure Acute hypoxic respiratory failure Chronic respiratory failure on home O2 COPD History of heart failure Chronic kidney disease Hypertension Type 2 diabetes Hyponatremia Acute kidney injury due to vasomotor nephropathy Dehydration Mild protein malnutrition Discharge Disposition: Home SNF Discharge Will this Physician continue t: No Discharge Instruct/Medications Diet: Consistent carbohydrate, Cardiac 2g Na,low cholest Activity: No Restrictions, As Tolerated Follow Up/Referral: PCP as soon as possible Medications: Augmentin and doxycycline for 7 days Resume home medication Discharge Statement: "Patient was advised to return to the ER or call 911 if any headaches, dizziness, shortness of breath, chest pain, abdominal pain, bleeding, fevers, or worsening of medical condition. Patient was counseled about treatment plan, medications, possible side effects, patientverbalized understanding. All questions were answered to the best of my ability. This discharge took greater then 30 minutes in planning, reviewing documentation, counseling the patient, and discussing with other team members." ASSESSMENT ASSESSMENT Assessment Bilateral pneumonia Acute on chronic respiratory failure Acute hypoxic respiratory failure Chronic respiratory failure on home O2 COPD History of heart failure Chronic kidney disease Hypertension Type 2 diabetes Hyponatremia Acute kidney injury due to vasomotor nephropathy Dehydration Mild protein malnutrition Date of Service: December 16, 2024 Billing Provider: GARY LAGUERRE MD Common Visit Codes: 13682-QNW/OBS DISCH DAY >30min GARY LAGUERRE MD December 16, 2024 13:49
== END 2024-12-16 14:24 | disposition home or self-care (01) | DRG 177 ==
LOC: ER 12:34 → OVERFLOW 16:07 → CENTRAL 21:01
PROVIDERS: ADMIT Internal Medicine Geriatric Medicine; ATTEND Internal Medicine Geriatric Medicine
DX: J15.69 Pneumonia due to other Gram-negative bacteria (principal); J96.21 Acute and chronic respiratory failure with hypoxia; N17.0 Acute kidney failure with tubular necrosis; J44.1 Chronic obstructive pulmonary disease with (acute) exacerbation; E87.1 Hypo-osmolality and hyponatremia; E44.1 Mild protein-calorie malnutrition; J44.0 Chronic obstructive pulmonary disease with (acute) lower respiratory infection; I13.0 Hypertensive heart and chronic kidney disease with heart failure and stage 1 through stage 4 chronic kidney disease, or unspecified chronic kidney disease; Z68.1 Body mass index [BMI] 19.9 or less, adult; J15.9 Unspecified bacterial pneumonia; E86.0 Dehydration; Z20.822 Contact with and (suspected) exposure to COVID-19; N18.9 Chronic kidney disease, unspecified; E11.22 Type 2 diabetes mellitus with diabetic chronic kidney disease; I50.9 Heart failure, unspecified; M81.0 Age-related osteoporosis without current pathological fracture; Z90.49 Acquired absence of other specified parts of digestive tract; Z79.899 Other long term (current) drug therapy; Z99.81 Dependence on supplemental oxygen; Z90.13 Acquired absence of bilateral breasts and nipples; Z90.710 Acquired absence of both cervix and uterus; Z83.3 Family history of diabetes mellitus; Z80.3 Family history of malignant neoplasm of breast; Z87.891 Personal history of nicotine dependence; Z79.84 Long term (current) use of oral hypoglycemic drugs; Z85.3 Personal history of malignant neoplasm of breast
CPT/HCPCS: 36415; 71045; 71250; 80048; 80053; 81001; 82962; 83036; 83605; 83735; 83880; 84484; 85025; 87040; 87426; 87804; 93005; 93970; 94640; G0378; J1815; J1956; J3490